=== PATIENT | female | born 1970 | race Hispanic/Latino ===

== ENCOUNTER 2024-12-10 15:36 | Emergency (ER) | payer SELFPAY ==
[~2024-12-10] VITALS: Ht 160 cm; Wt 68.0 kg
[2024-12-10 15:51] VITALS: BP 141/79
[2024-12-10 16:00] VITALS: BP 138/73
[2024-12-10 16:15] VITALS: BP 125/66
[2024-12-10 16:30] VITALS: BP 134/75
[2024-12-10] MEDS ORDERED: KETOROLAC TROMETHAMINE 30 MG/ML SDV IV ONE (16:30)
[2024-12-10] MEDS ORDERED: SODIUM CHLORIDE 0.9% 1,000 ML IV ONE (16:30)
[2024-12-10] MEDS ORDERED: METOCLOPRAMIDE HCL 10 MG/2 ML SDV IV ONE (16:30)
[2024-12-10] MEDS ORDERED: DiphenhydrAMINE HCL 50 MG/ML SDV IV ONE (16:30)
[2024-12-10] MEDS ORDERED: PROCHLORPERAZINE EDISYLATE 10 MG/2 ML SDV IV ONE (16:35)
[2024-12-10 16:49] LABS: BASO% 0.2 % (0-3); EOS% 1.3 % (0-8); HEMATOCRIT 34.1 % (37.0-47.0); HEMOGLOBIN 10.9 g/dl (12.0-16.0); IMMATURE GRANULOCYTES 0.1 % (0.0-5.0); LYMPH% 25.1 % (15-41); MEAN CELL VOLUME 83.2 fL CALC (80.0-100.0); MEAN CORPUSCULAR HGB 26.6 pG CALC (26.0-32.0); NEUT# 5.69 thou/uL (2.00-7.15); NEUT% 66.3 % (42-76); RED BLOOD COUNT 4.1 mill/uL (4.20-5.60); RED CELL DISTRI WIDTH 14.9 % (11.5-15.5)
[2024-12-10 17:00] LABS: ALBUMIN 4.1 g/dL (3.2-5.0); BILIRUBIN, TOTAL 0.5 mg/dL (0.02-1.3); CREATININE 0.6 mg/dL (0.5-1.0); TOTAL PROTEIN 7.4 g/dL (6.3-8.2)
[2024-12-10] MEDS ORDERED: FIORICET PO (18:25)
[2024-12-10 18:36] VITALS: BP 134/75
== END 2024-12-10 18:43 | disposition home or self-care (01) | DRG 103 ==
LOC: ED 15:36
PROVIDERS: Clinical Nurse Specialist Emergency
DX: G43.809 Other migraine, not intractable, without status migrainosus (principal); I10 Essential (primary) hypertension; E11.9 Type 2 diabetes mellitus without complications
CPT/HCPCS: J0780; J1200